=== PATIENT | male | born 1945 | race American Indian/Alaskan Native ===

== ENCOUNTER 2017-08-18 18:09 | Emergency (ER) | payer MEDICARE ==
[2017-08-18 19:04] LABS: Basophils % (Auto) 1.2 % (0.0-1.8); Eosinophils # (Auto) 0.1 K/mm3 (0.0-0.4); Eosinophils % (Auto) 2.5 % (0.0-4.3); Hemoglobin 12.4 gm/dl (11.8-15.2); Lymphocytes # (Auto) 1.4 K/mm3 (1.2-5.4); Lymphocytes % (Auto) 33.9 % (13.4-35.0); Mean Corpuscular HGB Conc 35 % (32-34); Mean Corpuscular Hemoglobin 31 pg (28-32); Mean Corpuscular Volume 90 fl (84-94); Monocytes # (Auto) 0.5 K/mm3 (0.0-0.8); Monocytes % (Auto) 13.1 % (0.0-7.3); Platelet Count 111 K/mm3 (140-440); Red Cell Distribution Width 13.2 % (13.2-15.2)
[2017-08-18 19:36] LABS: BUN/Creatinine Ratio 9; Blood Urea Nitrogen 12 mg/dL (9-20); Calcium 7.7 mg/dL (8.4-10.2); Hemolysis Index 0
[2017-08-18] MEDS ORDERED: HumuLIN R IV ONE (23:33)
[2017-08-18] MEDS ORDERED: NACL 0.9% 1000 ML 2,000 ML IV ONE (23:33)
--- NOTE | 2017-08-18 23:58 | Emergency Department Report ---
ED General Adult HPI - General Chief complaint: Hyperglycemia Stated complaint: BLOOD SUGAR HIGH Time Seen by Provider: 08/18/17 23:24 Source: patient Mode of arrival: Ambulatory Limitations: No Limitations - History of Present Illness Initial comments: Mr. Pena is an insulin-dependent diabetic. He's had diabetes for the past 30 years. He has been taking insulin for the last 6 years. He has needed very little insulin doses. Consequently he discussed no longer taking insulin with his PCP. For past 6 months he has taken metformin and Januvia. Previously he was taking Lantus and Humalog. 10 units of Lantus each night 10 units per night. He was taking approximately 3 units of Humalog each meal. 3 months ago his most recent hemoglobin A1c was 10. His normal level of A1c is a little less than 7 around 6.8. He's not felt well for the last month. He's had increased thirst and urination. He has nausea. He denies any pain. His insulin cost has increased. Lantus is now $200 for eval. Humalog is now $300 per vial. He has recently negotiated with the pharmacist for $147 for lantus vial. - Related Data Previous Rx's Medication Instructions Recorded Last Taken Type Insulin Glargine [Lantus] 10 unit SUB-Q QHS 100 Days #10 ml 08/18/17 Unknown Rx Allergies Allergy/AdvReac Type Severity Reaction Status Date / Time No Known Allergies Allergy Unverified 08/18/17 18:11 ED Review of Systems ROS: Stated complaint: BLOOD SUGAR HIGH Other details as noted in HPI Comment: All other systems reviewed and negative Constitutional: malaise. denies: fever Respiratory: denies: cough Cardiovascular: denies: chest pain ED Past Medical Hx - Past Medical History Previous Medical History?: Yes Hx Hypertension: Yes Hx Heart Attack/AMI: Yes Hx Diabetes: Yes Additional medical history: thyriod,heart condition - Surgical History Past Surgical History?: Yes Additional Surgical History: 5 bypass 2005 back surg in the 70s - Social History Smoking Status: Never Smoker Substance Use Type: None - Medications Home Medications: Home Medications Medication Instructions Recorded Confirmed Last Taken Type Insulin Glargine [Lantus] 10 unit SUB-Q QHS 100 Days #10 ml 08/18/17 Unknown Rx ED Physical Exam - General Limitations: No Limitations General appearance: alert, in no apparent distress - Head Head exam: Present: atraumatic, normocephalic - Eye Eye exam: Present: normal appearance - ENT ENT exam: Present: mucous membranes dry - Neck Neck exam: Present: normal inspection. Absent: tenderness, meningismus - Respiratory Respiratory exam: Present: normal lung sounds bilaterally. Absent: respiratory distress, wheezes, rales, rhonchi, stridor - Cardiovascular Cardiovascular Exam: Present: regular rate, normal rhythm, normal heart sounds. Absent: systolic murmur, diastolic murmur, rubs, gallop - GI/Abdominal GI/Abdominal exam: Present: soft, normal bowel sounds. Absent: distended, tenderness, guarding, rebound - Rectal Rectal exam: Present: deferred - Extremities Exam Extremities exam: Present: normal inspection - Back Exam Back exam: Present: normal inspection - Neurological Exam Neurological exam: Present: alert, oriented X3 - Psychiatric Psychiatric exam: Present: normal affect, normal mood - Skin Skin exam: Present: warm, dry, intact, normal color. Absent: rash ED Course Vital Signs 08/18/17 08/18/17 18:11 23:57 Temperature 98.2 F Pulse Rate 59 L Respiratory 18 16 Rate Blood Pressure 120/70 O2 Sat by Pulse 99 Oximetry ED Medical Decision Making - Lab Data Result diagrams: 08/18/17 18:45 08/18/17 18:45 Laboratory Results - last 24 hr 08/18/17 08/18/17 08/18/17 18:45 18:45 18:45 WBC 4.0 L RBC 4.00 Hgb 12.4 Hct 36.0 MCV 90 MCH 31 MCHC 35 H RDW 13.2 Plt Count 111 L Lymph % (Auto) 33.9 [place] % (Auto) 13.1 H Eos % (Auto) 2.5 Baso % (Auto) 1.2 Lymph # 1.4 [place] # 0.5 Eos # 0.1 Baso # 0.0 Seg Neutrophils % 49.3 Seg Neutrophils # 2.0 VBG pH 7.350 Sodium 128 L Potassium 3.5 L Chloride 90.4 L Carbon Dioxide 23 Anion Gap 18 BUN 12 Creatinine 1.3 Estimated GFR > 60 BUN/Creatinine Ratio 9 Glucose 560 H* Calcium 7.7 L Vital Signs - 24 hr 08/18/17 18:11 Temperature 98.2 F Pulse Rate 59 L Respiratory 18 Rate Blood Pressure 120/70 O2 Sat by Pulse 99 Oximetry Laboratory Results - last 24 hr 08/18/17 08/18/17 08/18/17 18:45 18:45 18:45 WBC 4.0 L RBC 4.00 Hgb 12.4 Hct 36.0 MCV 90 MCH 31 MCHC 35 H RDW 13.2 Plt Count 111 L Lymph % (Auto) 33.9 [place] % (Auto) 13.1 H Eos % (Auto) 2.5 Baso % (Auto) 1.2 Lymph # 1.4 [place] # 0.5 Eos # 0.1 Baso # 0.0 Seg Neutrophils % 49.3 Seg Neutrophils # 2.0 VBG pH 7.350 Sodium 128 L Potassium 3.5 L Chloride 90.4 L Carbon Dioxide 23 Anion Gap 18 BUN 12 Creatinine 1.3 Estimated GFR > 60 BUN/Creatinine Ratio 9 Glucose 560 H* Calcium 7.7 L - Medical Decision Making Mr. Pena presents with hyperglycemia pseudohyponatremia ketosis without acidosis. Treated with IV fluid. Treated with IV insulin. I have prescribed Lantus. Vital Signs - 24 hr 08/18/17 08/18/17 18:11 23:57 Temperature 98.2 F Pulse Rate 59 L Respiratory 18 16 Rate Blood Pressure 120/70 O2 Sat by Pulse 99 Oximetry Critical care attestation.: If time is entered above; I have spent that time in minutes in the direct care of this critically ill patient, excluding procedure time. ED Disposition Clinical Impression: Hyperglycemia Disposition: DC-01 TO HOME OR SELFCARE Is pt being admited?: No Does the pt Need Aspirin: No Instructions: Diabetic Ketoacidosis (ED), Diabetic Hyperglycemia (ED) Prescriptions: Insulin Glargine [Lantus] 10 unit SUB-Q QHS 100 Days #10 ml Referrals: MONIQUE STRICKLAND MD [Primary Care Provider] - 3-5 Days Time of Disposition: 02:19
[2017-08-19 02:27] VITALS: BP 121/72
== END 2017-08-19 02:27 | disposition home or self-care (01) ==
LOC: ED 18:09
DX: E11.65 Type 2 diabetes mellitus with hyperglycemia (principal); Z79.4 Long term (current) use of insulin; I11.0 Hypertensive heart disease with heart failure
CPT/HCPCS: 36415; 80048; 82805; 82962; 85025; 96361; 96374; 99283; J7030; J1815

== ENCOUNTER 2018-10-20 16:22 | Emergency (ER) | payer MEDICARE ==
[2018-10-20 16:37] VITALS: BP 148/76
[2018-10-20 16:55] LABS: Basophils # (Auto) 0.1 K/mm3 (0.0-0.1); Basophils % (Auto) 0.7 % (0.0-1.8); Eosinophils # (Auto) 0.1 K/mm3 (0.0-0.4); Eosinophils % (Auto) 0.6 % (0.0-4.3); Hematocrit 41.6 % (35.5-45.6); Lymphocytes # (Auto) 0.8 K/mm3 (1.2-5.4); Lymphocytes % (Auto) 7.3 % (13.4-35.0); Mean Corpuscular HGB Conc 34 % (32-34); Mean Corpuscular Volume 93 fl (84-94); Monocytes # (Auto) 0.8 K/mm3 (0.0-0.8); Monocytes % (Auto) 7.6 % (0.0-7.3); Platelet Count 163 K/mm3 (140-440); Red Blood Count 4.46 M/mm3 (3.65-5.03); Red Cell Distribution Width 14.2 % (13.2-15.2)
[2018-10-20 17:28] LABS: Alanine Aminotransferase 22 units/L (7-56); Albumin 4.2 g/dL (3.9-5); BUN/Creatinine Ratio 16; Blood Urea Nitrogen 16 mg/dL (9-20); Calcium 9.1 mg/dL (8.4-10.2); Hemolysis Index 6
[2018-10-20 17:54] LABS: Bacteria,Urine 4+ /HPF (Negative); Bilirubin,Urine NEG (Negative); Blood,Urine MOD (Negative); Color,Urine Yellow (Yellow); Mucus,Urine FEW /HPF; Sperm,Urine 2+ /HPF (NP); Urobilinogen,Urine < 2.0 mg/dL (<2.0)
== END 2018-10-20 19:45 | disposition left against medical advice (07) ==
LOC: ED 16:22
DX: R10.9 Unspecified abdominal pain (principal); Z53.21 Procedure and treatment not carried out due to patient leaving prior to being seen by health care provider
CPT/HCPCS: 36415; 80053; 81001; 85025